=== PATIENT | male | born 1995 ===

== ENCOUNTER 2019-01-28 21:02 | Emergency (ER) | payer OTHER ==
--- NOTE | 2019-01-28 21:29 | UC ---
Respiratory Complaint HPI - HPI Summary HPI Summary: 23 yo male presents requesting CXR. He tells me that he had the BCG vaccine and thus tests positive on skin PPD tests and is required to have a CXR. He has no symptoms and feels well at this time. - History of Current Complaint Stated Complaint: POSS TB Hx Obtained From: Patient Severity Currently: None - Allergies/Home Medications Allergies/Adverse Reactions: Allergies Allergy/AdvReac Type Severity Reaction Status Date / Time No Known Allergies Allergy Verified 01/28/19 21:29 Home Medications: Home Medications NK [No Home Medications Reported] 01/28/19 [History Confirmed 01/28/19] PMH/Surg Hx/FS Hx/Imm Hx - Additional Past Medical History Additional PMH: None - Surgical History Surgical History: None - Family History Known Family History: Positive: None - Social History Occupation: Student Lives: With Family Alcohol Use: Occasionally Substance Use Type: None Smoking Status (MU): Never Smoked Tobacco Review of Systems All Other Systems Reviewed And Are Negative: Yes Constitutional: Positive: Negative Skin: Positive: Negative Respiratory: Positive: Negative Cardiovascular: Positive: Negative Gastrointestinal: Positive: Negative Neurovascular: Positive: Negative Musculoskeletal: Positive: Negative Neurological: Positive: Negative Psychological: Positive: Negative Physical Exam - Summary Physical Exam Summary: GENERAL: NAD. WDWN. No pain distress. SKIN: No rashes, sores, lesions, or open wounds. NECK: Supple. Nontender. No lymphadenopathy. CHEST: CTAB. No r/r/w. No accessory muscle use. Breathing comfortably and in no distress. CV: RRR. Without m/r/g. Pulses intact. Cap refill <2seconds NEURO: Alert. PSYCH: Age appropriate behavior. Triage Information Reviewed: Yes Vital Signs: Vital Signs: Temp Pulse Resp BP Pulse Ox 99.1 F 54 18 104/70 100 01/28/19 21:29 01/28/19 21:29 01/28/19 21:29 01/28/19 21:29 01/28/19 21:29 Vital Signs Reviewed: Yes Respiratory Course/Dx - Course Course Of Treatment: CXR: No radiologist reading after 1800, therefore wet read by myself is negative for acute disease. 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 - Differential Dx/Diagnosis Provider Diagnosis: Positive PPD Discharge - Sign-Out/Discharge Documenting (check all that apply): Patient Departure All imaging exams completed and their final reports reviewed: No - Discharge Plan Condition: Stable Disposition: HOME Referrals: No Primary Care Phys,NOPCP [Primary Care Provider] - Additional Instructions: If you develop a fever, shortness of breath, chest pain, new or worsening symptoms - please call your PCP or go to the ED immediately. Your chest x-ray appears normal today, but will be read by the radiologist in the morning. For an official report, please contact our clinic tomorrow. - Billing Disposition and Condition Condition: STABLE Disposition: Home
[2019-01-28 21:31] VITALS: BP 104/70
--- NOTE | 2019-01-29 10:00 | UC ---
- Progress Note Progress Note: CXR: IMPRESSION: NO EVIDENCE FOR ACTIVE CARDIOPULMONARY DISEASE. No change in plan of care Course/Dx - Diagnoses Provider Diagnoses: Positive PPD Discharge - Sign-Out/Discharge Documenting (check all that apply): Post-Discharge Follow Up All imaging exams completed and their final reports reviewed: Yes - Discharge Plan Condition: Stable Disposition: HOME Referrals: No Primary Care Phys,NOPCP [Primary Care Provider] - Additional Instructions: If you develop a fever, shortness of breath, chest pain, new or worsening symptoms - please call your PCP or go to the ED immediately. Your chest x-ray appears normal today, but will be read by the radiologist in the morning. For an official report, please contact our clinic tomorrow. - Billing Disposition and Condition Condition: STABLE Disposition: Home
== END 2019-01-28 21:37 | disposition home or self-care (01) ==
LOC: UCEAST 21:02
DX: R76.11 Nonspecific reaction to tuberculin skin test without active tuberculosis (principal)
CPT/HCPCS: 71046; 99201; G0463